=== PATIENT | female | born 1955 | race Caucasian/White ===

== ENCOUNTER 2019-12-15 09:13 | Outpatient (CLI) | payer MEDICARE, SELFPAY ==
--- NOTE | ~2019-12-15 | MM_ITS ---
EXAMINATION: MM screening [facility] HISTORY: Screening mammogram TECHNIQUE: Craniocaudal and mediolateral oblique 3-D tomosynthesis images were obtained and synthetic 2-D images were generated. CAD analysis was submitted and interpreted. COMPARISON: 08/13/2018, 06/06/2017, 02/27/2016 bilateral digital screening mammogram examinations BREAST PARENCHYMAL COMPOSITION: FINDINGS: There is no evidence of suspicious mass, calcification, or architectural distortion to sugg est malignancy in either breast. There has been no suspicious interval change. IMPRESSION: 1. No mammographic evidence of malignancy. 2. Recommend routine screening mammography in one year. BI-RADS Category 1: Negative Reviewed, dictated and finalized at location A.
== END 2019-12-15 09:14 | disposition home or self-care (01) ==
LOC: ANHIMG 09:18
PROVIDERS: PCP Family Medicine; Visit Provider Family Medicine
DX: Z12.31 Encounter for screening mammogram for malignant neoplasm of breast (principal)
CPT/HCPCS: 77063; 77067

== ENCOUNTER 2020-12-28 15:08 | Outpatient (CLI) | payer MEDICARE, SELFPAY ==
--- NOTE | ~2020-12-28 | MM_ITS ---
EXAMINATION: MM screening [facility] BI w elliott HISTORY: Screening mammogram TECHNIQUE: Craniocaudal and mediolateral oblique 3-D tomosynthesis images were obtained and synthetic 2-D images were generated. CAD analysis was submitted and interpreted. COMPARISON: 12/15/2019, 08/13/2018, 06/06/2017 BREAST PARENCHYMAL COMPOSITION: The breasts are almost entirely fatty. FINDINGS: There is no evidence of suspicious mass, calcification, or architectural distortion to sugg est malignancy in either breast. There has been no suspicious interval change. IMPRESSION: 1. No mammographic evidence of malignancy. 2. Recommend routine screening mammography in one year. BI-RADS Category 1: Negative Reviewed, dictated and finalized at location A.
== END 2020-12-28 15:09 | disposition home or self-care (01) ==
LOC: ANHIMG 15:10
PROVIDERS: PCP Family Medicine; Visit Provider Family Medicine
DX: Z12.31 Encounter for screening mammogram for malignant neoplasm of breast (principal)
CPT/HCPCS: 77063; 77067

== ENCOUNTER 2022-03-07 09:03 | Outpatient (CLI) | payer MEDICARE, SELFPAY ==
--- NOTE | ~2022-03-07 | MM_ITS ---
EXAMINATION: MM screening [facility] HISTORY: Screening TECHNIQUE: Craniocaudal and mediolateral oblique 3-D tomosynthesis images were obtained and synthetic 2-D images were generated. CAD analysis was submitted and interpreted. COMPARISON: Comparison to multiple prior studies sequentially, with oldest reviewed study dated 08/2015. BREAST PARENCHYMAL COMPOSITION: The breasts are almost entirely fatty. FINDINGS: There is no evidence of suspicious mass, calcification, or architectural distortion to sugg est malignancy in either breast. There has been no suspicious interval change. IMPRESSION: 1. No mammographic evidence of malignancy. 2. Recommend routine screening mammography in one year. BI-RADS Category 1: Negative Reviewed, dictated and finalized at location B. ATOR/ASSISTANT FOREMAN
== END 2022-03-07 09:04 | disposition home or self-care (01) ==
PROVIDERS: PCP Family Medicine; Visit Provider Family Medicine
DX: Z12.31 Encounter for screening mammogram for malignant neoplasm of breast (principal)
CPT/HCPCS: 77063; 77067

== ENCOUNTER 2022-09-21 11:08 | Emergency (ER) | payer MEDICARE, SELFPAY ==
--- NOTE | ~2022-09-21 | XR_ITS ---
EXAMINATION: XR hip RT min 3V w AP pelvis INDICATION: Right hip pain TECHNIQUE: AP view of the pelvis and three views of the right hip are obtained. COMPARISON: 06/12/2018 FINDINGS: Bone alignment is normal. There is no fracture. There is mild osteoarthritis of the hips. S urgical clips are noted in the pelvis. There is mild osteitis pubis. Severe lower lumbar spondylosis is noted. IMPRESSION: 1. No acute osseous abnormality. Reviewed, dictated and finalized at location A.
--- NOTE | ~2022-09-21 | XR_ITS ---
EXAMINATION: XR lumbar spine min 4V DATE: 09/21/2022 12:48 INDICATION: Low back pain TECHNIQUE: Anteroposterior, lateral, and bilateral oblique views of the lumbar spine, and cone-down l ateral view of the lumbosacral junction were obtained. COMPARISON: 06/12/2018 FINDINGS: There is severe loss of intervertebral disc space height at L4-5. There is moderate loss of intervertebral disc space height throughout the remainder of the lumbar spine. There is severe facet joint osteoarthritis of the lower lumbar spine. Bone alignment is normal. There is no fracture. The vertebral body heights are maintained. There are surgical clips in the pelvis and right upper quadran t. IMPRESSION: 1. Severe lumbar spondylosis without acute findings or significant interval change. Reviewed, dictated and finalized at location A. IMPRESSION: 1. Severe lumbar spondylosis without acute findings or significant interval hakan nge.
[2022-09-21 11:08] VITALS: BP 140/83; PULSE 73; RESP 16; TEMP 36.4; O2SAT 96
--- NOTE | 2022-09-21 11:16 | PC.NURSE ---
States while at the gym, slipped on water in the locker room and fell to her butt. Denies any LOC or hitting her head. States she is having pain in her lower back and pain is radiating down her right leg. PMS is present distal to the injuries. Hx HTN, HLD
[2022-09-21] MEDS: ACETAMINOPHEN 500 MG TABLET 1000 MG PO (12:31)
--- NOTE | 2022-09-21 12:43 | ED.FALL ---
HPI - Fall General Chief Complaint: Fall Stated Complaint: fall Time Seen by Provider: 09/21/22 11:24 Source: patient Mode of arrival: ambulatory Limitations: no limitations History of Present Illness HPI Narrative: Patient is a 67-year-old female who presents the ED with report of a fall. Patient reports she was at a local gym in the locker room this morning around 9 AM when she slipped on a patch of water. She fell down onto her R buttock. She did not hit her head or lose consciousness. She was able to get up on her own and has been ambulatory since the fall, but complains of pain to her right lower back, right buttock, right thigh. Patient has not taken anything for pain prior to arrival. She denies any numbness or tingling. Denies bowel or bladder incontinence, saddle anesthesia, abdominal pain, upper extremity pain. Related Data Home Medications Medication Instructions Recorded Confirmed cetirizine 10 mg tablet (Zyrtec) 10 mg PO DAILY PRN 08/04/19 06/13/22 atorvastatin 20 mg tablet 20 mg PO DAILY 06/13/22 06/13/22 benazepril 20 mg tablet 20 mg PO DAILY 06/13/22 06/13/22 Allergies Allergy/AdvReac Type Severity Reaction Status Date / Time aspirin Allergy Unknown Skin Verified 09/21/22 11:14 Reaction latex Allergy Unknown Skin Verified 09/21/22 11:14 Reaction NSAIDS (Non-Steroidal Allergy Unknown Anaphylactic Verified 09/21/22 11:14 Anti-Inflamma Shock Penicillins Allergy Unknown Skin Verified 09/21/22 11:14 Reaction wheat Allergy Unknown UNKNOWN Verified 09/21/22 11:14 Review of Systems Review of Systems: CONSTITUTIONAL: Denies fever, chills, or sweats. CARDIOVASCULAR: Denies chest pain. RESPIRATORY: Denies dyspnea. GASTROINTESTINAL: Denies abdominal pain, nausea, vomiting. GENITOURINARY: Denies incontinence, dysuria or hematuria. SKIN: Denies rash or itching. MUSCULOSKELETAL: See HPI. NEUROLOGIC: See HPI. All systems reviewed & are unremarkable except as noted in HPI and below PMFSH Surgical History Surgical History H/O: hysterectomy (~03/1989) History of bladder surgery Hx of appendectomy (~07/2009) Hx of cholecystectomy Family History Family History Mother Hypertension Social History Social History Smoking status: Never smoker Alcohol intake: never Substance use: never Substance use type: does not use Lack of Transportation: No Lack of Food: Never True Current Housing: I Have Housing Concerned About Future Housing: No Difficulty Paying Gas/Electric Bills: No Difficulty Paying for Meds: No Currently Unemployed: No Education: High School Diploma/GED Difficulty w/ Childcare or Family Care: No Living arrangements: with family Additional living arrangements comments: Occupation/Education: retired Gender identity (if verbalized by the patient): Female Sexual Orientation (if Verbalized by the Patient): Straight or Heterosexual Agree to blood products: Yes Exam Narrative: GENERAL: Well appearing, obese with BMI of 34.8, non-toxic, in no acute distress. HEAD: Normocephalic, atraumatic. NECK: Supple. No adenopathy, no masses. RESPIRATORY: Airway patent, respirations nonlabored. Clear to auscultation bilaterally, no rales, rhonchi, wheezing. CARDIOVASCULAR: Regular rate and rhythm without murmurs, rubs, or gallops. Pedal pulses 2+ and equal bilaterally. ABDOMINAL: Soft, nontender, nondistended, no hepatosplenomegaly. Normoactive BS. MUSCULOSKELETAL: Moves all extremities. Strength/ROM intact without gross deformities. No midline thoracic or lumbar spinal tenderness. Mild right-sided paraspinal muscular tenderness in lumbosacral region. Mild tenderness over right posterior and lateral buttock, no bruising or hematoma formation palpated. Sensation intact. SKIN:
== END 2022-09-21 14:40 | disposition home or self-care (01) ==
PROVIDERS: Emergency Provider Physician Assistant; PCP Family Medicine
DX: S39.012A Strain of muscle, fascia and tendon of lower back, initial encounter (principal); S70.01XA Contusion of right hip, initial encounter; Z90.710 Acquired absence of both cervix and uterus; Z90.49 Acquired absence of other specified parts of digestive tract; M47.816 Spondylosis without myelopathy or radiculopathy, lumbar region; W01.0XXA Fall on same level from slipping, tripping and stumbling without subsequent striking against object, initial encounter
CPT/HCPCS: 72110; 73502; 99284; A9270

== ENCOUNTER 2022-09-26 11:35 | Outpatient (CLI) | payer MEDICARE, SELFPAY ==
--- NOTE | ~2022-09-26 | US_ITS ---
Duplex Sonography of the bilateral lower extremities: Indication: Swelling Sagittal and transverse B-mode images as well as color-flow imaging were performed on the right and l eft femoral and popliteal veins. B-mode examination was done without and with compression in the tra nsverse plane. There is good visualization of the bilateral common femoral, proximal profunda femora l, superficial femoral, greater saphenous, and popliteal veins. Normal flow was seen on color-flow im aging. Normal compressibility was demonstrated. Visualized calf veins are also patent. Impression: No evidence of deep vein thrombosis involving either lower extremity. Reviewed, dictated and finalized at location M. Impression: No evidence of deep vein thrombosis involving either lower extremit y.
== END 2022-09-26 11:36 | disposition home or self-care (01) ==
PROVIDERS: PCP Family Medicine; Visit Provider Family Medicine
DX: R60.0 Localized edema (principal)
CPT/HCPCS: 93970

== ENCOUNTER 2022-10-11 03:30 | Emergency (ER) | payer MEDICARE, SELFPAY | END 2022-10-11 04:30 | disposition home or self-care (01) | PROVIDERS: Emergency Provider Emergency Medicine; PCP Family Medicine | DX: M54.40 Lumbago with sciatica, unspecified side (principal) | CPT/HCPCS: 96372; 99284 ==

== ENCOUNTER 2023-02-10 07:47 | Outpatient (NON) | payer MEDICARE, SELFPAY | END 2023-02-10 07:48 | disposition home or self-care (01) | PROVIDERS: PCP Family Medicine; Visit Provider Internal Medicine Gastroenterology | DX: K52.9 Noninfective gastroenteritis and colitis, unspecified (principal) | CPT/HCPCS: 88305 ==

== ENCOUNTER 2023-02-10 09:38 | Day surgery (SDC) | payer MEDICARE, SELFPAY ==
[2023-01-22 12:01] VITALS: BMI 34.8
--- NOTE | 2023-02-10 11:01 | PM.HPGS ---
History of Present Illness History of Present Illness Consent: Risks, benefits, and alternatives have been discussed and questions answered. Patient agrees to proceed with procedure. Chief complaint: Fecal Urgency,Noninfective Gastroenteritis&Colitis Narrative: Tali Lopez is a 67 year old female Presents for colonoscopy. Patient reports diarrhea that she previously had has now improved. Patient denies any abdominal pain. She has had no bleeding. Family history noncontributory. Review of Systems Review of Systems: Stomach is noncontributory. [facility] Past Medical History Medical History (Updated 12/25/22 @ 14:54 by Kitty Chen APRN) Chronic diarrhea Fecal urgency Mucinous cystadenoma of appendix Surgical History Surgical History (Updated 12/25/22 @ 14:53 by Kitty Chen APRN) H/O: hysterectomy (~03/1989) History of bladder surgery Hx of appendectomy (~07/2009) Hx of cholecystectomy Family History Family History Mother Hypertension Social History Social History Smoking status: Never smoker Alcohol intake: never Drinks per week: 0 Alcohol use details: RARELY Substance use: never Substance use type: does not use Lack of Transportation: No Lack of Food: Never True Current Housing: I Have Housing Concerned About Future Housing: No Difficulty Paying Gas/Electric Bills: No Difficulty Paying for Meds: No Currently Unemployed: No Education: High School Diploma/GED Difficulty w/ Childcare or Family Care: No Living arrangements: with family Additional living arrangements comments: Occupation/Education: retired Gender identity (if verbalized by the patient): Female Sexual Orientation (if Verbalized by the Patient): Straight or Heterosexual Spiritual care concerns: No Agree to blood products: Yes Meds Home Medications and Allergies Home Medications Medication Instructions Recorded Confirmed Type cetirizine 10 mg tablet (Zyrtec) 10 mg PO DAILY PRN ALLERGIES 08/04/19 01/22/23 History triamterene 37.5 See Rx Instructions .Route 12/23/22 01/22/23 Rx mg-hydrochlorothiazide 25 mg tablet .COMPLEX #50 tabs sodium,potassium,mag sulfates 17.5 See Rx Instructions PO .COMPLEX 12/31/22 Rx gram-3.13 gram-1.6 gram oral soln #354 mL (Suprep Bowel Prep Kit) atorvastatin 20 mg tablet 20 mg PO DAILY #90 tabs 01/24/23 Rx estradiol 1 mg tablet 1 mg PO DAILY #90 tabs 01/24/23 Rx benazepril 20 mg tablet 20 mg PO DAILY #90 tabs 02/10/23 Rx Allergies Allergy/AdvReac Type Severity Reaction Status Date / Time aspirin Allergy Severe Anaphylaxis Verified 01/22/23 11:59 latex Allergy Intermediate Itching Verified 01/22/23 11:59 Penicillins Allergy Intermediate Hives Verified 01/22/23 11:59 NSAIDS (Non-Steroidal Allergy Unknown Unknown Verified 01/22/23 11:59 Anti-Inflamma wheat Allergy Unknown UNKNOWN Verified 12/25/22 13:18 Exam Narrative: Physical exam reveals patient to be alert signs stable. HEENT exam is unremarkable. Patient is anicteric. Lungs are clear to auscultation and to percussion. Heart is without murmur or extra sounds. Abdomen bowel sounds are present soft nontender with no organomegaly. Digital external rectal exam normal. Assessment and Plan Assessment and plan (1) Chronic diarrhea: Code(s): K52.9 - Noninfective gastroenteritis and colitis, unspecified Status: Acute Assessment and Plan: Patient with chronic diarrhea that is now resolved. I would recommend the patient get more fiber in her diet. Consider fiber supplement such as FiberCon 2 tabs p.o. b.i.d. stool will be performed. Other recommendations may be given after colonoscopy. Immodium can be used if needed for travel but should not be taken on a regular basis.
[2023-02-10 11:07] VITALS: BP 92/56; PULSE 78; RESP 18; TEMP 36.6; O2SAT 98
[2023-02-10] MEDS: LACTATED RINGERS 1,000 ML 150 ML IV CONT (11:15)
--- NOTE | 2023-02-10 11:21 | WPDANESEPPF ---
Anes - Initial Pre Proc Eval Procedure: Operation Date: 02/10/23 12:30 Proposed Procedures p Colonoscopy - Jose Ledezma MD Date/Time: 02/10/23 11:21 Surgeon: Jose Ledezma MD Pre Op Diagnosis: Fecal Urgency,Noninfective Gastroenteritis&Colitis Patient Data Age: 67 Gender: F Height: 1.63 m Weight: 91.7 kg Last Vital Signs Temp 36.6 C 02/10/23 11:07 Pulse 78 02/10/23 11:07 Resp 18 02/10/23 11:07 BP 92/56 L 02/10/23 11:07 Pulse Ox 98 02/10/23 11:07 O2 Del Method Room Air 02/10/23 11:07 Allergies Allergy/AdvReac Type Severity Reaction Status Date / Time aspirin Allergy Severe Anaphylaxis Verified 02/10/23 11:06 latex Allergy Intermediate Itching Verified 02/10/23 11:06 Penicillins Allergy Intermediate Hives Verified 02/10/23 11:06 NSAIDS (Non-Steroidal Allergy Unknown Unknown Verified 02/10/23 11:06 Anti-Inflamma wheat Allergy Unknown UNKNOWN Verified 02/10/23 11:06 Home Medications Medication Instructions Recorded Confirmed Type cetirizine 10 mg tablet (Zyrtec) 10 mg PO DAILY PRN ALLERGIES 08/04/19 02/10/23 History triamterene 37.5 See Rx Instructions .Route 12/23/22 02/10/23 Rx mg-hydrochlorothiazide 25 mg tablet .COMPLEX #50 tabs sodium,potassium,mag sulfates 17.5 See Rx Instructions PO .COMPLEX 12/31/22 02/10/23 Rx gram-3.13 gram-1.6 gram oral soln #354 mL (Suprep Bowel Prep Kit) atorvastatin 20 mg tablet 20 mg PO DAILY #90 tabs 01/24/23 02/10/23 Rx estradiol 1 mg tablet 1 mg PO DAILY #90 tabs 01/24/23 02/10/23 Rx benazepril 20 mg tablet 20 mg PO DAILY #90 tabs 02/10/23 02/10/23 Rx Patient hx anesthesia problems: none Family hx anesthesia problems: none Results Review: All pre-operative results and documents have been reviewed as part of the pre-operative evaluation. [facility] Past Medical History Medical History (Updated 12/25/22 @ 14:54 by Kitty Chen APRN) Chronic diarrhea Fecal urgency Mucinous cystadenoma of appendix Surgical History Surgical History H/O: hysterectomy (~03/1989) History of bladder surgery Hx of appendectomy (~07/2009) Hx of cholecystectomy Family History Family History Mother Hypertension Social History Social History Smoking status: Never smoker Alcohol intake: never Drinks per week: 0 Alcohol use details: RARELY Substance use: never Substance use type: does not use Lack of Transportation: No Lack of Food: Never True Current Housing: I Have Housing Concerned About Future Housing: No Difficulty Paying Gas/Electric Bills: No Difficulty Paying for Meds: No Currently Unemployed: No Education: High School Diploma/GED Difficulty w/ Childcare or Family Care: No Living arrangements: with family Additional living arrangements comments: Occupation/Education: retired Gender identity (if verbalized by the patient): Female Sexual Orientation (if Verbalized by the Patient): Straight or Heterosexual Spiritual care concerns: No Agree to blood products: Yes Anes - Eval Final PreProcedure Day of Procedure 02/10/23 11:21 Patient weight: obese Heart: regular rate and rhythm Lungs: clear to auscultation Airway: Mallampati scale class II Neurological: alert and oriented Last oral intake: >/= 8 hours ASA classification: II Emergent: no Anesthetic plan: proceed Anesthesia type and monitoring: general GIVS and standard monitoring Results Review: All pre-operative results and documents have been reviewed as part of the pre-operative evaluation. Informed Consent: The patient's anesthetic plan and its attendant risks and benefits were discussed with the patient/family/POA. Questions were solicited and answers provided to the satisfaction of the patient/family/POA.
[2023-02-10 11:41] VITALS: BP 118/78; PULSE 86; RESP 14; O2SAT 96
[2023-02-10 11:51] VITALS: BP 136/72; PULSE 79; RESP 16; O2SAT 97
[2023-02-10 12:01] VITALS: BP 124/74; PULSE 66; RESP 16; O2SAT 98
--- NOTE | 2023-02-10 12:01 | WPDANESPN ---
Anes - Prog Note Post-Op Date/Time: 02/10/23 12:01 Cardiovascular status: normal Respiratory status: normal Airway patency: baseline Mental status: baseline Post-Op hydration status: normal Vital Signs: Last Vital Signs Temp 36.6 C 02/10/23 11:07 Pulse 79 02/10/23 11:51 Resp 16 02/10/23 11:51 BP 136/72 02/10/23 11:51 Pulse Ox 97 02/10/23 11:51 O2 Del Method Room Air 02/10/23 11:51 Pain Score (VAS): 0/10 I/O: Intake & Output 02/09/23 02/10/23 02/10/23 23:59 07:59 15:59 Intake Total 450 Balance 450 Patient Feedback: Patient satisfied with anesthetic care.
== END 2023-02-10 12:14 | disposition home or self-care (01) ==
PROVIDERS: PCP Family Medicine; Visit Provider Internal Medicine Gastroenterology
PROC: 0DJD8ZZ Inspection of Lower Intestinal Tract, Via Natural or Artificial Opening Endoscopic (ICD-10-PCS; CPT 45378; principal; 2023-02-10 12:30)
DX: R19.7 Diarrhea, unspecified (principal); D12.8 Benign neoplasm of rectum; K64.8 Other hemorrhoids
CPT/HCPCS: 45385; 45380

== ENCOUNTER 2023-03-12 13:09 | Outpatient (CLI) | payer MEDICARE, SELFPAY ==
--- NOTE | ~2023-03-12 | MM_ITS ---
EXAMINATION: MM screening [facility] w [facility] HISTORY: Screening mammogram TECHNIQUE: Craniocaudal and mediolateral oblique 3-D tomosynthesis images were obtained and synthetic 2-D images were generated. CAD analysis was submitted and interpreted. COMPARISON: 03/05/2022, 12/28/2020, 12/15/2019 bilateral screening mammogram examinations BREAST PARENCHYMAL COMPOSITION: The breasts are almost entirely fatty. FINDINGS: There is no evidence of suspicious mass, calcification, or architectural distortion to sugg est malignancy in either breast. There has been no suspicious interval change. IMPRESSION: 1. No mammographic evidence of malignancy. 2. Recommend routine screening mammography in one year. BI-RADS Category 1: Negative Reviewed, dictated and finalized at location A. ERCIAL CONSTRUCTION PROJECT MANAGER
== END 2023-03-12 13:10 | disposition home or self-care (01) ==
LOC: ANHIMG 13:10
PROVIDERS: PCP Family Medicine; Visit Provider Physician Assistant
DX: Z12.31 Encounter for screening mammogram for malignant neoplasm of breast (principal)
CPT/HCPCS: 77063; 77067

== ENCOUNTER 2023-06-17 08:43 | Outpatient (CLI) | payer MEDICARE, SELFPAY ==
--- NOTE | ~2023-06-17 | DEXA_ITS ---
Bone Density Report Name: LAUREL ESTRADA Age: 67 Sex: Female Ethnicity: White Date of : 1955 Indication: postmenopausal; screening for osteoporosis; height loss; hysterectomy; Referring Provider: GREER, ERROL Jimenes Study: Bone densitometry was performed. Exam Date: June 17, 2023 Accession number: [id number] Bone Density: Region BMD T-score Z-score Classification AP Spine(L1-L4) 1.184 1.2 3.3 Normal Femoral Neck (Left) 0.683 -1.5 0.3 Osteopenia Total Hip (Left) 0.925 -0.1 1.4 Normal Femoral Neck (Right) 0.669 -1.6 0.2 Osteopenia Total Hip (Right) 0.999 0.5 2.0 Normal Total Hip Mean 0.962 0.2 1.7 Normal World Health Organization criteria for BMD impression classify patients as: Normal (T-score at or above -1.0), Osteopenia (T-score between -1.0 and -2.5), or Osteoporosis (T-score at or below -2.5). 10-year Fracture Risk(1): Major Osteoporotic Fracture 9.2% Hip Fracture 1.3% Reported Risk Factors: [place] (), Neck BMD=0.669, BMI=37.4 (1) FRAX(R) Version 3.08. Fracture probability calculated for an untreated patient. Fracture probability may be lower if the patient has received treatment. Clinical Information Provided by Patient: Has used the following medications: Vitamin D Has the following medical conditions: Hysterectomy Patient maximum height was 64 Menopause Age: 33 Drinks caffeinated beverages Onset of menses at age 12 Number of children 2 Impression: The patient has low bone mass, based on the Right Femoral Neck T-score. The patient has an estimated ten-year risk of hip fracture of 1.3% and an estimated ten-year risk of major fracture of 9.2%, based on the WHO FRAX algorithm. Discussion: BONE DENSITY IS LOW AT ONE OR MORE SKELETAL SITES. This patient's lowest T-score is low at one or more skeletal sites. It meets the World Health Organization's (WHO) criteria for ?low bone mass? (T-score between -1.0 and -2.5). The patient's 10-year risk of fracture as calculated by FRAX is less than the threshold where pharmacological therapy is recommended by the National Osteoporosis Foundation (NOF). However, all treatment decisions require clinical judgment and consideration of individual patient factors, including patient preferences, comorbidities, previous drug use, risk factors not captured in the FRAX model (e.g., frailty, falls, vitamin D deficiency, increased bone turnover, interval significant decline in bone density) and possible under or overestimation of fracture risk by FRAX. The patient should follow a healthful lifestyle (good nutrition with adequate calcium and vitamin D, and appropriate weight-bearing exercise). Follow-Up: Consider repeating this study in 2 to 3 years to reassess this patient's status, or sooner if there is some new clinical in
== END 2023-06-17 08:44 | disposition home or self-care (01) ==
PROVIDERS: PCP Family Medicine; Visit Provider Physician Assistant
DX: Z78.0 Asymptomatic menopausal state (principal); M85.852 Other specified disorders of bone density and structure, left thigh; M85.851 Other specified disorders of bone density and structure, right thigh
CPT/HCPCS: 77080

== ENCOUNTER 2024-03-15 13:44 | Outpatient (CLI) | payer MEDICARE, SELFPAY ==
--- NOTE | ~2024-03-15 | MM_ITS ---
EXAMINATION: MM screening [facility] BI w elliott HISTORY: Screening TECHNIQUE: Craniocaudal and mediolateral oblique 3-D tomosynthesis images were obtained and synthetic 2-D images were generated. CAD analysis was submitted and interpreted. COMPARISON: 03/12/2023 and dating back to 12/15/2019 BREAST PARENCHYMAL COMPOSITION: There are scattered areas of fibroglandular density. FINDINGS: Punctate calcifications detected bilaterally, stable and benign in appearance, and dermal i n origin. Otherwise stable parenchymal pattern without suspicious microcalcifications, architectural distortion , discrete masses or significant asymmetry. IMPRESSION: 1. No mammographic evidence of malignancy. 2. Recommend routine screening mammography in one year. BI-RADS Category 2: Benign finding(s). Reviewed, dictated and finalized at location A. ECTOR BOOTH OPERATOR
== END 2024-03-15 13:45 | disposition home or self-care (01) ==
LOC: ANHIMG 13:47
PROVIDERS: PCP Family Medicine; Visit Provider Family Medicine
DX: Z12.31 Encounter for screening mammogram for malignant neoplasm of breast (principal)
CPT/HCPCS: 77063; 77067

== ENCOUNTER 2024-10-12 09:05 | Outpatient (CLI) | payer MEDICARE, SELFPAY ==
--- NOTE | ~2024-10-12 | XR_ITS ---
EXAM/ PROCEDURE: XR hip LT min 2V - 10/12/2024 9:30 CDT HISTORY: 69 years old Female with M25.551 - Pain in right hip COMPARISON: None available TECHNIQUE: Two view(s) FINDINGS/ IMPRESSION: There are no fractures or dislocations.Joint space narrowing, subchondral sclerosis, subchondral cyst formation and osteophyte formation, compatible with mild osteoarthritis. Surgical clips are seen in the pelvis. Reviewed, dictated and finalized at location A.
--- NOTE | ~2024-10-12 | XR_ITS ---
XR lumbar spine 2-3V 10/12/2024 09:42 Indication: Back pain Procedure: 3 views lumbar spine Comparison: 09/21/2022 Findings: There is disc narrowing at all lumbar levels. Vertebral body heights are maintained. There is facet hypertrophy at L3-4, L4-5 and L5-S1. Mild levocurvature of the lumbar spine. Impression: 1: Severe lumbar spondylosis. Reviewed, dictated and finalized at location A. Impression: 1: Severe lumbar spondylosis.
--- NOTE | ~2024-10-12 | XR_ITS ---
EXAM/ PROCEDURE: XR_[id number] - 10/12/2024 9:30 CDT HISTORY: 69 years old Female with M25.561 - Pain in right knee COMPARISON: None available TECHNIQUE: Two view(s) FINDINGS/ IMPRESSION: There are no fractures or dislocations.Joint space narrowing, subchondral sclerosis, subchondral cyst formation and osteophyte formation, compatible with mild osteoarthritis. Reviewed, dictated and finalized at location A.
--- NOTE | ~2024-10-12 | XR_ITS ---
[id number] 10/12/2024 09:42 Indication: Left knee pain Procedure: 2 views left knee Comparison: No prior studies for comparison. Findings: There is severe patellofemoral compartment osteoarthritis. No fracture or genetic malalignm ent. There is chondrocalcinosis. Impression: 1: Severe patellofemoral compartment osteoarthritis. 2: Chondrocalcinosis. Reviewed, dictated and finalized at location A. Impression: 1: Severe patellofemoral compartment osteoarthritis. 2: Chondrocalcinosis.
--- NOTE | ~2024-10-12 | XR_ITS ---
XR hip RT min 2V 10/12/2024 09:42 Indication: Right hip Procedure: 2 views right Comparison: 09/21/2022 Findings: Mild osteoarthritis of the right hip. Normal mineralization. No soft tissue abnormality. No foreign bodies. No fracture or traumatic malalignment. Impression: 1: Mild osteoarthritis right hip. Reviewed, dictated and finalized at location A. Impression: 1: Mild osteoarthritis right hip.
--- OUTSIDE RECORDS SUMMARY | 2024-10-12 09:12 | XMS_ITS | Clinical Summary ---
Author Organization [facility] Address [address] [place] [id number] Care Team Providers Care Customer Support Assistant Name Role Phone Mayo Holguin MD Primary Care Provider [phone] Allergies Active Allergy Reactions Criticality Noted Date Comments Aspirin Anaphylaxis High 08/31/2019 Latex Itching Low 08/31/2019 Penicillins Anaphylaxis,Hives High 08/31/2019 Medications Lipitor 20 mg tablet 2019 Active estradioL (ESTRACE) 1 mg tablet 06/06/2019 Active benazepriL (LOTENSIN) 20 mg tablet daily 06/23/2019 Active cetirizine (ZyrTEC) 10 mg tablet Take 1 tablet (10 mg total) by mouth daily Active triamterene-hydr oCHLOROthiazide (triamterene-hyd roCHLOROthiazide ) 37.5-25 mg per tablet/capsule Take 0.5 tablet/caps ule by mouth daily Active Active Problems Problem Noted Date Diagnosed Date Lumbosacral spondylosis without myelopathy 08/30 Chronic bilateral low back pain without sciatica 08/31/2019 Lumbar facet joint syndrome 08/31/2019 Sacroiliitis 08/31/2019 Social History Tobacco Use Types Packs/Day Years Used Date Smoking Tobacco: Never Comments No Sex and Gender Information Value Date Recorded Sex Assigned at Not on file Legal Sex Female 11:05 AM CDT Gender Identity Not on file Sexual Orientation Not on file Obstetrics History Last Filed Vital Signs Vital Sign Reading Time Taken Comments Blood Pressure 115/81 12/10/2023 10:32 AM CDT Pulse 63 12/10/2023 10:32 AM CDT Temperature 36.3 C (97.3 F) 08/14/2022 8:52 AM CDT Respiratory Rate 18 12/10/2023 10:32 AM CDT Oxygen Saturation 98% 12/10/2023 10:32 AM CDT Inhaled Oxygen Concentration - - Weight 92.6 kg (204 lb 3.2 oz) 07/23/2022 2:33 P M CDT Height 160 cm (5' 2.99) 07/23/2022 2:33 PM CDT Body Mass Index 36.18 07/23/2022 2:33 PM CDT Plan of Treatment Health Maintenance Due Date Last Done Comments Colon Cancer Screening-Colonoscopy 1955 Depression Screening 1955 Hepatitis C Screening 1955 Osteoporosis Screening-Bone Density Scan 1955 DTaP/Tdap/Td Vaccine (1 - Tdap) 1966 Hepatitis B Screening 07/27/1971 Zoster Vaccine (2 of 3) 03/05/2014 01/08/2014 Breast Cancer Screening-Mammogram 02/04/2016 02/03/2015, 12/24/2013, 04/21/2012 Well Visit 65+ 2018 Pneumococcal vaccine 65+ (2 of 2 - PCV) 12/18/2019 12/17/2018 Influenza Vaccine (Season Ended) 2024 12/18/19 19, 01/07/2018 Fall Risk Assessment 12/09/2024 12/10/[address] [place] [address] [facility] MEDICARE ADVANTAGE [facility] MEDICARE ADVANTAGE Care Teams Customer Support Assistant Relationship Specialty Start Date End Date Mayo Holguin MD [address] [place] [address] PCP - General 08/31/19
--- OUTSIDE RECORDS SUMMARY | 2024-10-12 09:12 | XMS_ITS | Referral Summary ---
Author Organization [facility] Address [address] [place] [id number] Care Team Providers Care Emergency Services Director Name Role Phone Mayo Holguin MD Primary Care Provider [phone] Allergies Active Allergy Reactions Criticality Noted Date [...] on file Sexual Orientation Not on file Last Filed Vital Signs Vital Sign Reading [...] 07/23/2022 2:33 PM CDT Plan of Treatment Not on file Insurance [facility] MEDICARE ADVANTAGE [facility] MEDIC[facility] Address: [facility] [address] [place] [address] UHC MEDICARE ADVANTAGE [facility] Address: [address] [address] [place] [address] Care Teams Emergency Services Director Relationship Specialty Start Date End Date Mayo Holguin MD [address] [place] [address] [facility] - General 08/31/19
--- OUTSIDE RECORDS SUMMARY | 2024-10-12 09:12 | XMS_ITS | Clinical Summary ---
Author Organization [facility] Address [address] [place] [address] Care Team Providers Care Manager Purchasing Name Role Phone Unavailable Primary Care Provider Unavailabl e Source Comments [facility],non-owned Affiliates and Associated Physician Practices is amultiple site organization consisting of ambulatory clinics and hospital sitesin [place], [place], [place] and [place]. This disclosure is being madepursuant to the Care Everywhere program and may not contain all information available regarding this patient. Last updated 17.[facility] [employer] Social History Tobacco Use Types Packs/Day Years Used Date Smoking Tobacco: Never Assessed Comments Unknown Sex and Gender Information Value Date Recorded Sex Assigned at Not on file Legal Sex Female 7:30 PM SENIOR ACCOUNTANT ANALYST Gender Identity Not on file Sexual Orientation Not on file Plan of Treatment Health Maintenance Due Date Last Done Comments BONE DENSITY TESTING 1955 COLOGUARD (AGES 45-75) - COL ON CA SCREENING 1955 COLON MONITORING 1955 COLONOSCOPY - COLON CA SCREENING 1953 CT COLONOGRAPHY - COLON CA SCREENING 1955 Colorectal Cancer Screening 1955 FIT - COLON CA SCREENING 1953 FLEX SIG - COLON CA SCREENING 1955 HEPATITIS C SCREENING 07/22/1971 DTAP/TDAP/TD VACCINES (1 - Tdap) 1972 PNEUMOCOCCAL VACCINE 50+ (1 of 1 - PCV) 07/27/2003 ZOSTER VACCINE (1 of 2) 07/27/2003 MAMMOGRAM 02/03/2017 02/03/2015, 12/24/2013, 04/21/2012 LIPID TESTING 02/01/2020 01/31/2015, 01/31/2014 COVID-19 VACCINE (1 - 2023-2 5 season) 2023 DEPRESSION SCREENING 03/24/2024 MEDICARE AWV CALENDAR YEAR 2024 INFLUENZA VACCINE (#1) 2024 Respiratory Syncytial Virus (RSV) Vaccine Pt: or over 60 yrs (1 - 1-dose 75+ series) 2028 HEPATITIS B VACCINE Aged Out No longe r eligible based on patient's age to complete this topic HIB VACCINE Aged Out No longer eligi ble based on patient's age to complete this topic HPV VACCINE Aged Out No longer eligi ble based on patient's age to complete this topic MENINGOCOCCAL (Group B) VACCINE SHARED DECISION-MAKING Aged Out No longer eligible based on patient's age to complete this topic MENINGOCOCCAL GROUPS A/C/Y/W VACCINE Aged Out No longer eligible b ased on patient's age to complete this topic Procedures Procedure Name Priority Date/Time Associated Diagnosis Comments MAMMO BILAT SCREENING Routine 02/03/2015 7:16 AM SENIOR ACCOUNTANT ANALYST LIPID PROFILE Routine 01/31/2015 6:08 AM SENIOR ACCOUNTANT ANALYST from Last 3 Months or Most Recently Relevant to Health Maintenance Results * MAMMO BILAT SCREENING (02/03/2015 7:16 AM SENIOR ACCOUNTANT ANALYST) Anatomical Region Laterality Modality Breast Bilateral Other Impressions 02/06/2015 9:46 AM SENIOR ACCOUNTANT ANALYST IMPRESSION: No mammographic evidence of malignancy. BI-RADS Category 1: Negative mammogram. RECOMMENDATION: Return for mammograms in one year or sooner if clinically indicated. This report was electronically signed by MARY LAWLER M.D. on 02/06/2015 9:46 AM . Narrative 02/06/2015 9:46 AM SENIOR ACCOUNTANT ANALYST Bilateral screening mammogram Date: 02/03/2015 8:17 AM Comparison: 04/04/2010, 04/19/2011, 04/21/2012 and 12/24/2013. History: Screening mammogram. Risk assessment: Breast cancer lifetime risk was assessed using several models. Lifetime risk using the Tyrer-Cuzick model is calculated at 3.8 %, and using NCI screening tool at 5.8 %. This is considered average lifetime risk. Findings: The breasts were imaged in the cranial caudal and medial lateral oblique views using full field digital mammography. No suspicious new dominant mass, grouped microcalcification, or architectural distortion is seen. Breast parenchymal density: The breasts are almost entirely fatty. This examination was subjected to CAD analysis. Procedure Note Liliana Lawler MD - 06/21/2017 Bilateral screening mammogram Date: 02/03/2015 8:17 AM Comparison: 04/04/2010, 04/19/2011, 04/21/2012 and 12/24/2013. History: Screening mammogram. Risk assessment: Breast cancer lifetime risk was assessed using severalmodels. Lifetime risk using the Tyrer-Cuzick model is calculated at 3.8%, and using NCI screening tool at 5.8 %. This is considered averagelifetime risk. Findings: The breasts were imaged in the cranial caudal and medial lateral obliqueviews using full field digital mammography. No suspicious new dominantmass, grouped microcalcification, or architectural distortion is seen. Breast parenchymal density: The breasts are almost entirely fatty. This examination was subjected to CAD analysis. IMPRESSION IMPRESSION: No mammographic evidence of malignancy. BI-RADS Category 1: Negative mammogram. RECOMMENDATION: Return for mammograms in one year or sooner if clinicallyindicated. This report was electronically signed by MARY LAWLER M.D. on02/06/2015 9:46 AM . us Jacky Ramirez MD MAMMO ORDERABLES Final Result * (ABNORMAL) LIPID PROFILE (01/31/2015 6:08 AM SENIOR ACCOUNTANT ANALYST) Cholesterol Total 169 <200 mg/dL [facility] HDL 46 >40 mg/dL [facility] Comment: ATP III Classification of HDL Cholesterol: <40 mg/dL: Considered a major risk factor. >60 mg/dL: Considered a negative risk factor. LDL Calculated 90 <100 mg/dL [facility] Comment: ATP III Classification of LDL Cholesterol: <100 mg/dL: Optimal 100 - 129 mg/dL: Near Optimal/Above Optimal 130 - 159 mg/dL: Borderline High 160 - 189 mg/dL: High >190 mg/dL: Very High Triglycerides 165(H) <150 mg/dL [facility] Comment: ATP III Classification of Triglycerides: <150 mg/dL: Normal 150 - 199 mg/dL: Borderline High 200 - 400 mg/dL: High >500 mg/dL: Very High Blood specimen (specimen) BLOOD SPECIMEN / Unknown 01/31/2015 6:08 AM SENIOR ACCOUNTANT ANALYST 01/31/2015 7:28 AM SENIOR ACCOUNTANT ANALYST us Historical Provider LAB - CHEMISTRY ORDERABLE [place] [address], [facility] [phone] from Last 3 Months or Most Recently Relevant to [place] [address] [place] [address] [employer] MANAGED MEDICARE ADV
== END 2024-10-12 09:06 | disposition home or self-care (01) ==
PROVIDERS: PCP Family Medicine; Visit Provider Student in an Organized Health Care Education/Training Program
DX: M25.552 Pain in left hip (principal); M25.561 Pain in right knee; M25.562 Pain in left knee; M47.27 Other spondylosis with radiculopathy, lumbosacral region; M16.11 Unilateral primary osteoarthritis, right hip
CPT/HCPCS: 72100; 73502; 73560

== ENCOUNTER 2025-01-31 08:53 | Emergency (ER) | payer OTHER, MEDICARE, SELFPAY ==
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
[2025-01-31 09:06] VITALS: BP 122/105; PULSE 85; RESP 20; TEMP 36.2; O2SAT 97
--- OUTSIDE RECORDS SUMMARY | 2025-01-31 09:16 | XMS_ITS | Clinical Summary ---
Author Organization [facility] Address [address] [place] [address] Care Team Providers Care Metal Polisher And Buffer Apprentice Name Role Phone Unavailable Primary Care Provider Unavailabl e Source Comments [facility],non-owned Affiliates and Associated Physician Practices is amultiple site organization consisting of ambulatory clinics and hospital sitesin [place], [place], [place] and [place]. This disclosure is being madepursuant to the Care Everywhere program and may not contain all information available regarding this patient. Last updated 17.[facility] [employer] Social History Tobacco Use Types Packs/Day Years Used Date Smoking Tobacco: Never Assessed Comments Unknown Sex and Gender Information Value Date Recorded Sex Assigned at Not on file Legal Sex Female 7:30 PM TUNNEL MINER Gender Identity Not on file Sexual Orientation [...] 12/24/2013, 04/21/2012 LIPID TESTING 02/01/2020 01/31/2015, 01/31/2014 DEPRESSION SCREENING 03/24/2024 MEDICARE AWV CALENDAR YEAR 2024 COVID-19 VACCINE (1 - 2023-2 5 season) 2024 INFLUENZA VACCINE (#1) 2024 Respiratory Syncytial [...] MAMMO BILAT SCREENING Routine 02/03/2015 7:16 AM TUNNEL MINER LIPID PROFILE Routine 01/31/2015 6:08 AM TUNNEL MINER from Last 3 Months or Most Recently Relevant to Health Maintenance Results * MAMMO BILAT SCREENING (02/03/2015 7:16 AM TUNNEL MINER) Anatomical Region Laterality Modality Breast Bilateral Other Impressions 02/06/2015 9:46 AM TUNNEL MINER IMPRESSION: No mammographic evidence of malignancy. BI-RADS Category 1: Negative mammogram. RECOMMENDATION: Return for mammograms in one year or sooner if clinically indicated. This report was electronically signed by MARY LAWLER M.D. on 02/06/2015 9:46 AM . Narrative 02/06/2015 9:46 AM TUNNEL MINER Bilateral screening mammogram Date: 02/03/2015 8:17 AM [...] * (ABNORMAL) LIPID PROFILE (01/31/2015 6:08 AM TUNNEL MINER) Cholesterol Total 169 <200 mg/dL [facility] HDL 46 >40 mg/dL [facility] Comment: ATP III Classification of HDL Cholesterol: <40 mg/dL: Considered a major risk factor. >60 mg/dL: Considered a negative risk factor. LDL Calculated 90 <100 mg/dL [facility] Comment: ATP III Classification of LDL Cholesterol: <100 mg/dL: Optimal 100 - 129 mg/dL: Near Optimal/Above Optimal 130 - 159 mg/dL: Borderline High 160 - 189 mg/dL: High >190 mg/dL: Very High Triglycerides 165(H) <150 mg/dL [facility] Comment: ATP III Classification of Triglycerides: <150 mg/dL: Normal 150 - 199 mg/dL: Borderline High 200 - 400 mg/dL: High >500 mg/dL: Very High Blood specimen (specimen) BLOOD SPECIMEN / Unknown 01/31/2015 6:08 AM TUNNEL MINER 01/31/2015 7:28 AM TUNNEL MINER us Historical Provider LAB - CHEMISTRY [place] [address], [facility] [phone] from Last 3 Months or Most Recently Relevant to [place] [address] UHC MANAGED MEDICARE ADV
--- OUTSIDE RECORDS SUMMARY | 2025-01-31 09:16 | XMS_ITS | Clinical Summary ---
Author Organization [facility] Address [address] [place] [phone] Care Team Providers Care Sales Research Analyst Name Role Phone Faith Nixon MD Primary Care Provider + Allergies Active Allergy Reactions Criticality Noted Date [...] Lumbar facet joint syndrome 08/31/2019 Sacroiliitis 08/31/2019 Encounters Date Type Department Care Team Description 12/13/2024 7:40 AM CDT - 12/13/2024 11:59 PM CDT Hospital Encounter [facility] [address] [place] [phone] Darius Galan NP Lumbosacral spondylosis without myelopathy (Primary Dx); Sacroiliitis; Chronic bilateral low back pain without sciatica Discharge Disposition: Discharge to home or self care 11/25/2024 7:58 AM CDT - 11/25/2024 11:59 PM CDT Hospital Encounter [facility] [address] [place] [id number] Alan Odell MD Sacroiliitis Discharge Disposition: Discharge to home or self care 11/09/2024 7:58 AM CDT - 11/09/2024 11:59 PM CDT Hospital Encounter [facility] [address] [place] [phone] Darius Galan NP Lumbosacral spondylosis without myelopathy (Primary Dx); Lumbar facet joint syndrome; Chronic bilateral low back pain without sciatica; Sacroiliitis Discharge Disposition: Discharge to home or self care from Last 3 Months Social History Tobacco Use Types Packs/Day Years Used Date Smoking Tobacco: Never Comments No Sex and Gender Information Value Date Recorded Sex Assigned at Not on file Legal Sex Female 11:05 AM CDT Gender Identity Not on file Sexual Orientation Not on file Last Filed Vital Signs Vital Sign Reading Time Taken Comments Blood Pressure 128/66 12/13/2024 7:46 AM CDT Pulse 50 12/13/2024 7:46 AM CDT Temperature 36.7 C (98 F) 11/25/2024 8:20 AM CDT Respiratory Rate 16 12/13/2024 7:46 AM CDT Oxygen Saturation 99% 12/13/2024 7:46 AM CDT Inhaled Oxygen Concentration - - Weight 92.6 kg (204 lb 3.2 oz) 07/23/2022 2:33 P M CDT Height 160 cm (5' 2.99) 07/23/2022 2:33 PM CDT Body Mass Index 36.18 07/23/2022 2:33 PM CDT Plan of Treatment Health Maintenance Due Date Last Done Comments Colon Cancer Screening-Colonoscopy 1955 Depression Screening 1955 Hepatitis C Screening 1955 Osteoporosis Screening-Bone Density Scan 1955 Hepatitis B Screening 07/27/1971 Breast Cancer Screening-Mammogram 02/04/2016 02/03/2015, 12/24/2013, 04/21/2012 Well Visit 65+ 2018 Influenza Vaccine (#1) 2024 4, 12/19/2022, 11/10/2021, Additional history exists Fall Risk Assessment 12/13/2025 12/13/2024 DTaP/Tdap/Td Vaccine (3 - Td or Tdap) 01/17/2030 01/18/2020, 01/26/2010, 07/09/2002 Pneumococcal vaccine 65+ Completed 12/17/2018, 07/23 Zoster Vaccine Completed 09/22/2023, 0503/2023, 01/08/2014, Additional history exists Procedures Procedure Name Priority Date/Time Associated Diagnosis Comments PAIN MGMT IMAGING SI JOINT BILATERAL ARTHROGRPHY Schedule Routine, Read Routine (OP Routine) 11/25/2024 8:42 AM CDT Sacroiliitis from Last 3 Months Results * Imaging SI Joint Injection Bilateral (02025) (11/25/2024 8:42 AM CDT) Narrative RAD_PACS_[facility] - 11/25/2024 8:43 AM CDT The images from this study are not interpreted by Radiology. Please refer to the physician's procedure / OR operative note. us Darius Galan NP IMG PAIN MGMT PROCEDURES Deb shaylee Result [facility] from Last [address] [place] [address] [facility] MEDICARE ADVANTAGE [facility] MEDICARE ADVANTAGE Care Teams Sales Research Analyst Relationship Specialty Start Date End Date Faith Nixon MD [facility] [place] [address] PCP - General Family Medicine 11/09/24
--- OUTSIDE RECORDS SUMMARY | 2025-01-31 10:39 | XMS_ITS | Clinical Summary ---
Author Organization [facility] Address [address] [place] [address] Care Team Providers Care Sand Conditioner Name Role Phone Unavailable Primary Care Provider Unavailabl e Source Comments [facility],non-owned Affiliates and Associated Physician Practices is amultiple site organization consisting of ambulatory clinics and hospital sitesin [place], [place], [place] and [place]. This disclosure is being madepursuant to the Care Everywhere program and may not contain all information available regarding this patient. Last updated 17.[facility] [employer] Social History Tobacco Use Types Packs/Day Years Used Date Smoking Tobacco: Never Assessed Comments Unknown Sex and Gender Information Value Date Recorded Sex Assigned at Not on file Legal Sex Female 7:30 PM PATIENT RELATIONS MANAGER Gender Identity Not on file Sexual Orientation [...] MAMMO BILAT SCREENING Routine 02/03/2015 7:16 AM PATIENT RELATIONS MANAGER LIPID PROFILE Routine 01/31/2015 6:08 AM PATIENT RELATIONS MANAGER from Last 3 Months or Most Recently Relevant to Health Maintenance Results * MAMMO BILAT SCREENING (02/03/2015 7:16 AM PATIENT RELATIONS MANAGER) Anatomical Region Laterality Modality Breast Bilateral Other Impressions 02/06/2015 9:46 AM PATIENT RELATIONS MANAGER IMPRESSION: No mammographic evidence of malignancy. BI-RADS Category 1: Negative mammogram. RECOMMENDATION: Return for mammograms in one year or sooner if clinically indicated. This report was electronically signed by MARY LAWLER M.D. on 02/06/2015 9:46 AM . Narrative 02/06/2015 9:46 AM PATIENT RELATIONS MANAGER Bilateral screening mammogram Date: 02/03/2015 8:17 AM [...] * (ABNORMAL) LIPID PROFILE (01/31/2015 6:08 AM PATIENT RELATIONS MANAGER) Cholesterol Total 169 <200 mg/dL [facility] HDL 46 >40 mg/dL [facility] Comment: ATP III Classification of HDL Cholesterol: <40 mg/dL: Considered a major risk factor. >60 mg/dL: Considered a negative risk factor. LDL Calculated 90 <100 mg/dL [facility] Comment: ATP III Classification of LDL Cholesterol: <100 mg/dL: Optimal 100 - 129 mg/dL: Near Optimal/Above Optimal 130 - 159 mg/dL: Borderline High 160 - 189 mg/dL: High >190 mg/dL: Very High Triglycerides 165(H) <150 mg/dL [facility] Comment: ATP III Classification of Triglycerides: <150 mg/dL: Normal 150 - 199 mg/dL: Borderline High 200 - 400 mg/dL: High >500 mg/dL: Very High Blood specimen (specimen) BLOOD SPECIMEN / Unknown 01/31/2015 6:08 AM PATIENT RELATIONS MANAGER 01/31/2015 7:28 AM PATIENT RELATIONS MANAGER us Historical Provider LAB - CHEMISTRY [place] [address], [facility] [phone] from Last 3 Months or Most Recently Relevant to [place] [address] [employer] MANAGED MEDICARE ADV
--- OUTSIDE RECORDS SUMMARY | 2025-01-31 10:39 | XMS_ITS | Clinical Summary ---
Author Organization [facility] Address [address] [place] [phone] Care Team Providers Care Epidemiology Intern Name Role Phone Faith Nixon MD Primary [...] - 12/13/2024 11:59 PM CDT Hospital Encounter [facility] [address] [place] [phone] Darius Galan NP Lumbosacral spondylosis without myelopathy (Primary Dx); Sacroiliitis; Chronic bilateral low back pain without sciatica Discharge Disposition: Discharge to home or self care 11/25/2024 7:58 AM CDT - 11/25/2024 11:59 PM CDT Hospital Encounter [facility] [address] [place] [phone] Alan Odell MD Sacroiliitis Discharge Disposition: Discharge to home or self care 11/09/2024 7:58 AM CDT - 11/09/2024 11:59 PM CDT Hospital Encounter [facility] [address] [place] [phone] Darius Galan NP Lumbosacral spondylosis without myelopathy [...] Results * Imaging SI Joint Injection Bilateral ([id number]) (11/25/2024 8:42 AM CDT) Narrative RAD_PACS_[facility] - 11/25/2024 8:43 AM CDT The images from this study are not interpreted by Radiology. Please refer to the physician's procedure / OR operative note. us Darius Galan NP IMG PAIN MGMT PROCEDURES Deb shaylee Result RAD_PACS_[facility] from Last [address] [place] [address] [facility] MEDICARE ADVANTAGE [facility] MEDICARE ADVANTAGE Care Teams Epidemiology Intern Relationship Specialty Start Date End Date Faith Nixon MD [facility] [place] [address] PCP - General Family Medicine 11/09/24
[2025-01-31] MEDS: CYCLOBENZAPRINE HCL 5 MG TABLET PO (11:24)
[2025-01-31 11:26] VITALS: BP 127/63; PULSE 58; RESP 20; O2SAT 100
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
== END 2025-01-31 13:11 | disposition home or self-care (01) ==
PROVIDERS: PCP Family Medicine
DX: M54.2 Cervicalgia (principal); M25.512 Pain in left shoulder; M25.551 Pain in right hip; R07.89 Other chest pain; V43.52XA Car driver injured in collision with other type car in traffic accident, initial encounter
CPT/HCPCS: 71046; 71120; 72125; 73030; 73502; 99284; A9270

== ENCOUNTER 2025-03-18 07:57 | Outpatient (CLI) | payer MEDICARE, SELFPAY ==
--- NOTE | ~2025-03-18 | MM_ITS ---
EXAMINATION: MM screening susana BI w elliott HISTORY: Screening TECHNIQUE: Craniocaudal and mediolateral oblique 3-D tomosynthesis images were obtained and synthetic 2-D images were generated. CAD analysis was submitted and interpreted. COMPARISON: Comparison to multiple prior studies sequentially, with oldest reviewed study dated 08/13/2018. BREAST PARENCHYMAL COMPOSITION: Not Dense: The breasts are almost entirely fatty. FINDINGS: There is no evidence of suspicious mass, calcification, or architectural distortion to suggest malignancy in either breast. There has been no suspicious interval change. IMPRESSION: 1. No mammographic evidence of malignancy. 2. Recommend routine screening mammography in one year. BI-RADS Category 1: Negative Reviewed, dictated and finalized at location O. RINTENDENT LOGGING
== END 2025-03-18 07:58 | disposition home or self-care (01) ==
PROVIDERS: PCP Family Medicine; Visit Provider Family Medicine
DX: Z12.31 Encounter for screening mammogram for malignant neoplasm of breast (principal)
CPT/HCPCS: 77063; 77067